=== PATIENT | female | born 1960 | race African-American/Black ===

== ENCOUNTER 2020-12-15 13:53 | Inpatient (IN) | payer OTHER ==
[~2020-12-15] VITALS: Ht 152.4 cm; Wt 94.5 kg
[2020-12-15 15:03] LABS: BASOPHILS % 0.5 % (0.0-2.0); EOSINOPHILS % 0.2 % (0.0-5.0); HEMATOCRIT. 34.1 % (36.0-48.0); HEMOGLOBIN. 11.1 g/dL (12.0-16.0); LYMPHOCYTES % 18.5 % (20.0-50.0); MEAN CORPUSCULAR HEMOGLOBIN 31.6 pg (28.0-32.0); MEAN CORPUSCULAR VOLUME 96.9 fL (81.0-99.0); MEAN PLATELET VOLUME 8.9 fl (7.4-10.4); MONOCYTES % 6.8 % (2.0-8.0); PLATELET 205 x1000/uL (130-400); RED BLOOD CELL COUNT 3.52 mill/uL (4.2-5.4); RED CELL DISTRIBUTION WIDTH 16.3 % (11.6-14.6)
[2020-12-15 15:10] LABS: CHLORIDE 109 mEq/L (98-107)
[2020-12-15 15:12] LABS: INR 1.2
[2020-12-15 15:14] LABS: ETHANOL BLOOD < 10 mg/dL
[2020-12-15] MEDS ORDERED: POTASSIUM CHLORIDE 20MEQ TABLET SR PO ONE (16:00)
[2020-12-15] MEDS ORDERED: ASPIRIN 325MG EC TABLET PO ONE (16:00)
[2020-12-15 18:10] LABS: CLARITY URINE CLEAR (CLEAR); COLOR URINE YELLOW (YELLOW); KETONES URINE TRACE (NEGATIVE); LEUKOCYTE ESTERASE URINE NEGATIVE (NEGATIVE); NITRITE URINE NEGATIVE (NEGATIVE); OCCULT BLOOD URINE 2+ (NEGATIVE); PH URINE 6.5 (4.5-8.0); PROTEIN URINE 1+ (NEGATIVE); UROBILINOGEN URINE 0.2 E.U./dL (0.2-1.0)
[2020-12-15 18:21] LABS: CANNABINOID URINE SCREEN NEGATIVE (NEGATIVE); METHADONE URINE SCREEN NEGATIVE (NEGATIVE); OPIATES URINE SCREEN NEGATIVE (NEGATIVE); PHENCYCLIDINE URINE SCREEN NEGATIVE (NEGATIVE)
[2020-12-15 18:22] LABS: *AMPHETAMINES SCREEN URINE NEGATIVE (NEGATIVE); *BARBITURATES SCREEN URINE NEGATIVE (NEGATIVE); *BENZODIAZEPINES SCREEN URINE NEGATIVE (NEGATIVE); *COCAINE SCREEN URINE NEGATIVE (NEGATIVE)
[2020-12-15] MEDS ORDERED: ZOLPIDEM TARTRATE 5MG TABLET PO PRN (21:30)
[2020-12-15] MEDS ORDERED: DIPHENHYDRAMINE 50MG/ML VIAL IV PRN (21:30)
[2020-12-15] MEDS ORDERED: DEXTROSE 50% WATER 50ML SYRINGE IV PRN (21:30)
[2020-12-15] MEDS ORDERED: ONDANSETRON HCL 4MG/2ML INJ IV PRN (21:30)
[2020-12-15] MEDS ORDERED: ACETAMINOPHEN 325MG TABLET PO PRN ×2 (21:30)
[2020-12-15] MEDS ORDERED: POTASSIUM CHLORIDE 20MEQ TABLET SR PO NR (21:30)
[2020-12-15] MEDS ORDERED: TRAMADOL 50MG TABLET PO PRN (21:30)
[2020-12-15] MEDS ORDERED: LOPERAMIDE HCL 2MG CAPSULE PO PRN (21:30)
[2020-12-15] MEDS ORDERED: ENOXAPARIN 40MG/0.4ML SYR SUBCUT SCH (21:30)
[2020-12-15] MEDS ORDERED: MAGNESIUM/ALUMINUM HYDROXIDE/SIMETHICONE 30ML UDC PO PRN (21:30)
[2020-12-15] MEDS: HYDRALAZINE 20MG/ML VIAL IV PRN (21:58)
[2020-12-15] MEDS: SODIUM CHLORIDE 0.9% INJ 3ML FLUSH IVF SCH (22:00)
[2020-12-15 23:13] VITALS: BP 175/105
[2020-12-15] MEDS: CLONIDINE 0.1MG TABLET PO PRN (23:57)
[2020-12-16] VITALS (12 sets, daily range): BP systolic 116–181; BP diastolic 55–106
[2020-12-16] MEDS: SODIUM CHLORIDE 0.9% INJ 3ML FLUSH IVF SCH ×3 (06:47→22:00)
[2020-12-16 07:21] LABS: CHLORIDE 110 mEq/L (98-107)
[2020-12-16 07:31] LABS: PHOSPHORUS 2.2 mg/dL (2.5-4.9)
[2020-12-16 07:32] LABS: LDL CHOLESTEROL 195 mg/dL (5-100)
[2020-12-16 07:33] LABS: HDL CHOLESTEROL 84 mg/dL (40-59)
[2020-12-16] MEDS: BLOOD SUGAR DIAGNOSTIC STRIP TEST SCH ×4 (07:48→20:35)
[2020-12-16] MEDS ORDERED: GLIPIZIDE 5MG XL TABLET PO SCH (08:00)
[2020-12-16] MEDS: AMLODIPINE 10MG TABLET PO SCH (08:31)
[2020-12-16] MEDS: LISINOPRIL 20MG TABLET PO SCH ×2 (08:31→20:32)
[2020-12-16] MEDS: INSULIN LISPRO 100 UNITS/ML SUBCUT SCH ×4 (08:35→20:52)
[2020-12-16] MEDS: HYDRALAZINE 20MG/ML VIAL IV PRN (09:12)
[2020-12-16] MEDS: GLIPIZIDE XL 2.5MG TABLET PO SCH (10:00)
[2020-12-16] MEDS ORDERED: LEVOTHYROXINE SODIUM 25MCG TABLET PO SCH (12:15)
[2020-12-16] MEDS: CLONIDINE 0.1MG TABLET PO PRN (12:18)
[2020-12-16] MEDS: FUROSEMIDE 40MG/4ML VIAL IVP SCH ×2 (12:25→17:17)
[2020-12-16] MEDS ORDERED: CLONIDINE 0.2MG TABLET PO PRN (13:30)
[2020-12-16 13:41] LABS: CREATINE KINASE 2265 IU/L (26-192)
[2020-12-16] MEDS: ATORVASTATIN CALCIUM 40MG TABLET PO SCH (20:32)
[2020-12-16] MEDS: ENOXAPARIN 30MG/0.3ML SYR SUBCUT SCH (20:35)
[2020-12-17] VITALS (12 sets, daily range): BP systolic 113–158; BP diastolic 60–105
[2020-12-17] MEDS: HYDRALAZINE 20MG/ML VIAL IV PRN (01:36)
[2020-12-17] MEDS: SODIUM CHLORIDE 0.9% INJ 3ML FLUSH IVF SCH ×3 (06:00→21:15)
[2020-12-17] MEDS: BLOOD SUGAR DIAGNOSTIC STRIP TEST SCH ×4 (07:30→21:15)
[2020-12-17 07:58] LABS: BASOPHILS % 0.4 % (0.0-2.0); EOSINOPHILS % 0.2 % (0.0-5.0); LYMPHOCYTES % 13.4 % (20.0-50.0); MEAN CORPUSCULAR HEMOGLOBIN 31.9 pg (28.0-32.0); MEAN CORPUSCULAR VOLUME 95.5 fL (81.0-99.0); MONOCYTES % 5.6 % (2.0-8.0); NEUTROPHILS % 80.4 % (40.0-76.0); PLATELET 226 x1000/uL (130-400); RED BLOOD CELL COUNT 3.77 mill/uL (4.2-5.4); RED CELL DISTRIBUTION WIDTH 16.2 % (11.6-14.6)
[2020-12-17] MEDS: LEVOTHYROXINE SODIUM 100MCG TABLET PO SCH (09:27)
[2020-12-17] MEDS ORDERED: MAGNESIUM 2 G PREMIX 50 ML IV ONE (09:30)
[2020-12-17] MEDS: LISINOPRIL 20MG TABLET PO SCH ×2 (09:34→21:14)
[2020-12-17] MEDS: GLIPIZIDE XL 2.5MG TABLET PO SCH (09:35)
[2020-12-17] MEDS: AMLODIPINE 10MG TABLET PO SCH (09:35)
[2020-12-17] MEDS ORDERED: POTASSIUM CHLORIDE 20MEQ TABLET SR PO NR ×2 (09:45→11:00)
[2020-12-17] MEDS: INSULIN LISPRO 100 UNITS/ML SUBCUT SCH ×5 (09:49→21:34)
[2020-12-17] MEDS: ENOXAPARIN 30MG/0.3ML SYR SUBCUT SCH ×2 (09:51→21:15)
[2020-12-17] MEDS: FUROSEMIDE 40MG/4ML VIAL IVP SCH ×2 (11:48→18:36)
[2020-12-17] MEDS: ATORVASTATIN CALCIUM 40MG TABLET PO SCH (21:14)
[2020-12-18] VITALS (10 sets, daily range): BP systolic 108–156; BP diastolic 63–89
[2020-12-18] MEDS: SODIUM CHLORIDE 0.9% INJ 3ML FLUSH IVF SCH ×3 (06:48→22:00)
[2020-12-18] MEDS ORDERED: MAGNESIUM 2 G PREMIX 50 ML IV SCH (08:00)
[2020-12-18] MEDS: INSULIN LISPRO 100 UNITS/ML SUBCUT SCH ×5 (08:00→20:57)
[2020-12-18] MEDS: AMLODIPINE 10MG TABLET PO SCH (08:01)
[2020-12-18] MEDS: FUROSEMIDE 40MG/4ML VIAL IVP SCH ×2 (08:01→17:15)
[2020-12-18] MEDS: LEVOTHYROXINE SODIUM 100MCG TABLET PO SCH (08:02)
[2020-12-18] MEDS: LISINOPRIL 20MG TABLET PO SCH ×2 (08:02→20:55)
[2020-12-18] MEDS: BLOOD SUGAR DIAGNOSTIC STRIP TEST SCH ×4 (08:07→20:57)
[2020-12-18] MEDS: ENOXAPARIN 30MG/0.3ML SYR SUBCUT SCH ×2 (08:07→20:57)
[2020-12-18] MEDS: GLIPIZIDE XL 2.5MG TABLET PO SCH (08:09)
[2020-12-18] MEDS ORDERED: ACETAMINOPHEN 325MG TABLET PO PRN (09:00)
[2020-12-18] MEDS: HYDRALAZINE 20MG/ML VIAL IV PRN (11:15)
[2020-12-18] MEDS ORDERED: POTA-81 PO (12:09)
[2020-12-18] MEDS ORDERED: HYDR-4135 PO (12:10)
[2020-12-18] MEDS ORDERED: ATOR-2 PO (12:11)
[2020-12-18] MEDS ORDERED: GLIP10TA10 PO (12:12)
[2020-12-18 16:16] LABS: BASOPHILS % 0.3 % (0.0-2.0); EOSINOPHILS % 0.3 % (0.0-5.0); HEMATOCRIT. 38.9 % (36.0-48.0); LYMPHOCYTES % 16.2 % (20.0-50.0); MEAN CORPUSCULAR HEMOGLOBIN 31.6 pg (28.0-32.0); MEAN CORPUSCULAR VOLUME 94.6 fL (81.0-99.0); MEAN PLATELET VOLUME 8.7 fl (7.4-10.4); MONOCYTES % 6.4 % (2.0-8.0); NEUTROPHILS % 76.8 % (40.0-76.0); PLATELET 271 x1000/uL (130-400); RED BLOOD CELL COUNT 4.11 mill/uL (4.2-5.4); RED CELL DISTRIBUTION WIDTH 16.2 % (11.6-14.6)
[2020-12-18 16:31] LABS: CHLORIDE 106 mEq/L (98-107)
[2020-12-18 16:41] LABS: PHOSPHORUS 2.6 mg/dL (2.5-4.9)
[2020-12-18] MEDS: QUETIAPINE FUMARATE 50MG TABLET PO SCH (19:30)
[2020-12-18] MEDS ORDERED: POTASSIUM CHLORIDE 20MEQ TABLET SR PO NR ×2 (19:30→22:00)
[2020-12-18] MEDS: ATORVASTATIN CALCIUM 40MG TABLET PO SCH (20:55)
[2020-12-18] MEDS: ALLOPURINOL 300 MG TABLET PO SCH (20:57)
[2020-12-18] MEDS ORDERED: ASCORBIC ACID 500 MG TABLET PO SCH (21:00)
[2020-12-18] MEDS ORDERED: BISACODYL 10MG SUPP PR PRN (21:00)
[2020-12-18] MEDS ORDERED: DOCUSATE SODIUM 100MG CAPSULE PO SCH (21:00)
[2020-12-18] MEDS ORDERED: CHLORHEXIDINE GLUCONATE 4% EXTERNAL USE TOP SCH (21:00)
[2020-12-18] MEDS: ALPRAZOLAM 0.25 MG TABLET PO SCH (22:00)
[2020-12-19] VITALS (34 sets, daily range): BP systolic 75–191; BP diastolic 35–136
[2020-12-19] MEDS: CHLORHEXIDINE GLUCONATE 4% EXTERNAL USE TOP SCH ×2 (05:00→09:00)
[2020-12-19 05:20] LABS: INR 1.1; PARTIAL THROMBOPLASTIN TIME 28.3 sec (23.4-31.0)
[2020-12-19 05:23] LABS: CHLORIDE 106 mEq/L (98-107)
[2020-12-19] MEDS: ALLOPURINOL 300 MG TABLET PO SCH (05:30)
[2020-12-19] MEDS ORDERED: DEL NIDO ELECTROLYTE-S(PH 7.4) 1,000 ML IV SCH ×2 (06:00)
[2020-12-19] MEDS ORDERED: NICARDIPINE 50 MG in NS 230 ML IV SCH (06:00)
[2020-12-19] MEDS ORDERED: EPINEPHRINE 5 MG in DEXT 5% WATER 245 ML IV SCH (06:00)
[2020-12-19] MEDS ORDERED: NOREPINEPHRINE 8 MG in DEXT 5% WATER 242 ML IV SCH (06:00)
[2020-12-19] MEDS: ALPRAZOLAM 0.25 MG TABLET PO SCH ×3 (06:00→21:42)
[2020-12-19] MEDS ORDERED: PAPAVERINE HCL 180MG in SODIUM CHLORIDE 0.9% 24ML IV SCH (06:00)
[2020-12-19] MEDS ORDERED: CEFAZOLIN 2,000 MG in DEXT 5% WATER 100 ML IV SCH (06:00)
[2020-12-19] MEDS ORDERED: INSULIN REGULAR (DRIP) 100 UNITS in SODIUM CHLORIDE 0.9% 99 ML IV SCH (06:00)
[2020-12-19] MEDS: SODIUM CHLORIDE 0.9% INJ 3ML FLUSH IVF SCH ×3 (06:00→21:59)
[2020-12-19] MEDS ORDERED: AMINOCAPROIC ACID 5,000 MG in SODIUM CHLORIDE 0.9% 230 ML IV SCH (06:00)
[2020-12-19 06:15] LABS: BASOPHILS % 0.2 % (0.0-2.0); EOSINOPHILS % 0.5 % (0.0-5.0); HEMATOCRIT. 40.5 % (36.0-48.0); HEMOGLOBIN. 13.1 g/dL (12.0-16.0); LYMPHOCYTES % 13.2 % (20.0-50.0); MEAN CORPUSCULAR HEMOGLOBIN 30.7 pg (28.0-32.0); MEAN CORPUSCULAR VOLUME 95.5 fL (81.0-99.0); MEAN PLATELET VOLUME 9.1 fl (7.4-10.4); MONOCYTES % 11.1 % (2.0-8.0); PLATELET 248 x1000/uL (130-400); RED BLOOD CELL COUNT 4.25 mill/uL (4.2-5.4); RED CELL DISTRIBUTION WIDTH 16.5 % (11.6-14.6)
[2020-12-19] MEDS: FUROSEMIDE 40MG/4ML VIAL IVP SCH ×2 (07:15→18:03)
[2020-12-19] MEDS: BLOOD SUGAR DIAGNOSTIC STRIP TEST SCH ×5 (07:30→21:00)
[2020-12-19] MEDS: LEVOTHYROXINE SODIUM 100MCG TABLET PO SCH (07:30)
[2020-12-19] MEDS: INSULIN LISPRO 100 UNITS/ML SUBCUT SCH ×4 (08:00→21:43)
[2020-12-19] MEDS: GLIPIZIDE XL 2.5MG TABLET PO SCH (08:00)
[2020-12-19] MEDS: QUETIAPINE FUMARATE 50MG TABLET PO SCH (09:00)
[2020-12-19] MEDS: LISINOPRIL 20MG TABLET PO SCH ×2 (09:00→21:43)
[2020-12-19] MEDS: AMLODIPINE 10MG TABLET PO SCH (09:00)
[2020-12-19] MEDS: ENOXAPARIN 30MG/0.3ML SYR SUBCUT SCH (09:00)
[2020-12-19] MEDS ORDERED: MAGNESIUM 2 G PREMIX 50 ML IV SCH (09:00)
[2020-12-19] MEDS ORDERED: BUPIVACAINE HCL/PF 0.5% (5MG/ML) 10ML ONE (10:25)
[2020-12-19] MEDS ORDERED: SKIN ADHESIVE 0.7 GM EA TOP ONE (10:25)
[2020-12-19] MEDS ORDERED: POLYMYXIN B SULFATE 500000 UNITS/VIAL ONE (10:25)
[2020-12-19] MEDS ORDERED: THROMBIN (BOVINE) 5000 UNITS/VIAL TOP ONE (10:26)
[2020-12-19] MEDS ORDERED: POTASSIUM CHLORIDE INJ 40 MEQ in DEXT 5% WATER 250 ML IV SCH (11:00)
[2020-12-19] MEDS ORDERED: BACITRACIN 15GM TUBE TOP ONE (11:03)
[2020-12-19] MEDS ORDERED: ROCURONIUM BROMIDE 10MG/ML VIAL 5ML IV ONE (11:23)
[2020-12-19] MEDS ORDERED: DEXAMETHASONE 4MG/ML 1ML VIAL ONE (11:24)
[2020-12-19] MEDS ORDERED: GLYCOPYRROLATE 0.2 MG/ML 2ML VIAL ONE ×3 (11:33→12:36)
[2020-12-19] MEDS ORDERED: NEOSTIGMINE METHYLSULFATE 1MG/ML 10 ML VIAL ONE (11:58)
[2020-12-19] MEDS ORDERED: ALBUMIN HUMAN 12.5G/250ML (5%) IV PRN (12:00)
[2020-12-19] MEDS ORDERED: MORPHINE SULFATE 2 MG/ML CPJ (NOT FOR IM USE) IV PRN (12:00)
[2020-12-19] MEDS ORDERED: ALBUMIN HUMAN 25GM/100ML (25%) IV PRN (12:00)
[2020-12-19] MEDS ORDERED: OXYCODONE HCL/ACETAMINOPHEN 5/325MG TABLET PO PRN (12:00)
[2020-12-19] MEDS ORDERED: KETOROLAC 15MG/ML VIAL IV PRN (12:00)
[2020-12-19] MEDS ORDERED: FUROSEMIDE 40MG/4ML VIAL ONE (12:03)
[2020-12-19] MEDS ORDERED: ALBUMIN HUMAN 25GM/100ML (25%) IV ONE (12:29)
[2020-12-19] MEDS ORDERED: HALOPERIDOL LACTATE 5MG/ML VIAL IM NR ×2 (12:45→13:30)
[2020-12-19 13:01] LABS: BG BASE EXCESS 3.5 mmol/L (-2.0-2.0); BG CARBOXYHEMOGLOBIN 0.3 % (0.5-1.5); BG DEOXYHEMOGLOBIN 5.3 % (0.0-5.0); BG FRACTION INSPIRED OXYGEN 44; BG HCO3 ACT 27.8 mmol/L (22.0-26.0); BG METHEMOGLOBIN 0.2 % (0.0-1.5); BG OXYGEN SATURATION 94.7 % (92.0-98.5); BG OXYHEMOGLOBIN 94.2 % (94.0-97.0); BG PCO2 41.1 mmHg (35.0-45.0); BG PH 7.448 (7.350-7.450); BG PO2 79.4 mmHg (75.0-100.0); BG SAMPLE SITE ALINE; BG TOTAL HEMOGLOBIN 9.6 g/dL (12.0-18.0); BG VENT MODE NASAL CANNULA
[2020-12-19 13:33] LABS: BASOPHILS % 0.2 % (0.0-2.0); EOSINOPHILS % 0.9 % (0.0-5.0); HEMATOCRIT. 28.3 % (36.0-48.0); LYMPHOCYTES % 13.1 % (20.0-50.0); MEAN CORPUSCULAR HEMOGLOBIN 32.2 pg (28.0-32.0); MEAN CORPUSCULAR VOLUME 95.9 fL (81.0-99.0); MEAN PLATELET VOLUME 8.6 fl (7.4-10.4); MONOCYTES % 6.7 % (2.0-8.0); NEUTROPHILS % 79.1 % (40.0-76.0); PLATELET 177 x1000/uL (130-400); RED BLOOD CELL COUNT 2.95 mill/uL (4.2-5.4)
[2020-12-19 13:39] LABS: INR 1.2; PARTIAL THROMBOPLASTIN TIME 27.8 sec (23.4-31.0); PROTHROMBIN TIME 12.9 sec (9.6-11.0)
[2020-12-19 13:57] LABS: HEMOGLOBIN. 9.5 g/dL (12.0-16.0)
[2020-12-19] MEDS ORDERED: KCL 10MEQ/50ML PREMIX 150 ML IV PRN (14:15)
[2020-12-19] MEDS ORDERED: KCL 10MEQ/50ML PREMIX 200 ML IV PRN (14:15)
[2020-12-19] MEDS ORDERED: KCL 10MEQ/50ML PREMIX 100 ML IV PRN (14:15)
[2020-12-19] MEDS ORDERED: FUROSEMIDE 40MG/4ML VIAL IVP NR (14:15)
[2020-12-19] MEDS: CEFAZOLIN 1000MG PREMIX 50 ML IV SCH ×2 (14:47→21:58)
[2020-12-19 15:58] LABS: HEMATOCRIT 29.8 % (36.0-48.0)
[2020-12-19] MEDS ORDERED: MAGNESIUM 1 G PREMIX 100 ML IV ONE (16:30)
[2020-12-19] MEDS ORDERED: MAGNESIUM 2 G PREMIX 50 ML IV ONE (16:30)
[2020-12-19] MEDS: IPRATROPIUM/ALBUTEROL 0.5-3(2.5)MG/3ML NEB HHN SCH ×2 (17:34→20:40)
[2020-12-19] MEDS ORDERED: MAGNESIUM SULFATE 3 GM in SODIUM CHLORIDE 0.9% 100 ML IV NR (18:00)
[2020-12-19 20:18] LABS: BASOPHILS % 0.1 % (0.0-2.0); EOSINOPHILS % 0.1 % (0.0-5.0); HEMATOCRIT. 33.7 % (36.0-48.0); HEMOGLOBIN. 11.2 g/dL (12.0-16.0); LYMPHOCYTES % 7.4 % (20.0-50.0); MEAN CORPUSCULAR HEMOGLOBIN 32.4 pg (28.0-32.0); MEAN CORPUSCULAR VOLUME 98.1 fL (81.0-99.0); MEAN PLATELET VOLUME 8.8 fl (7.4-10.4); MONOCYTES % 7.8 % (2.0-8.0); NEUTROPHILS % 84.6 % (40.0-76.0); PLATELET 182 x1000/uL (130-400); RED BLOOD CELL COUNT 3.44 mill/uL (4.2-5.4); RED CELL DISTRIBUTION WIDTH 16.8 % (11.6-14.6)
[2020-12-19] MEDS: ATORVASTATIN CALCIUM 40MG TABLET PO SCH (21:42)
[2020-12-20] VITALS (25 sets, daily range): BP systolic 107–167; BP diastolic 47–100
[2020-12-20] MEDS: IPRATROPIUM/ALBUTEROL 0.5-3(2.5)MG/3ML NEB HHN SCH ×6 (00:28→20:00)
[2020-12-20] MEDS: ALPRAZOLAM 0.25 MG TABLET PO SCH ×3 (05:09→22:00)
[2020-12-20] MEDS: CEFAZOLIN 1000MG PREMIX 50 ML IV SCH ×2 (05:09→14:39)
[2020-12-20 05:54] LABS: BASOPHILS % 0.1 % (0.0-2.0); HEMATOCRIT. 34.2 % (36.0-48.0); HEMOGLOBIN. 11.2 g/dL (12.0-16.0); LYMPHOCYTES % 8.4 % (20.0-50.0); MEAN CORPUSCULAR VOLUME 94.4 fL (81.0-99.0); MEAN PLATELET VOLUME 9.1 fl (7.4-10.4); MONOCYTES % 10.3 % (2.0-8.0); NEUTROPHILS % 81.2 % (40.0-76.0); PLATELET 221 x1000/uL (130-400); RED BLOOD CELL COUNT 3.62 mill/uL (4.2-5.4); RED CELL DISTRIBUTION WIDTH 16.2 % (11.6-14.6)
[2020-12-20] MEDS: SODIUM CHLORIDE 0.9% INJ 3ML FLUSH IVF SCH ×3 (06:00→22:00)
[2020-12-20] MEDS ORDERED: FUROSEMIDE 40MG/4ML VIAL IVP SCH (07:00)
[2020-12-20] MEDS: HYDRALAZINE 20MG/ML VIAL IV PRN (07:09)
[2020-12-20] MEDS: FUROSEMIDE 40MG/4ML VIAL IVP SCH ×2 (07:50→16:29)
[2020-12-20] MEDS: LEVOTHYROXINE SODIUM 100MCG TABLET PO SCH (07:50)
[2020-12-20] MEDS: BLOOD SUGAR DIAGNOSTIC STRIP TEST SCH ×4 (07:50→21:00)
[2020-12-20] MEDS: GLIPIZIDE XL 2.5MG TABLET PO SCH (08:20)
[2020-12-20] MEDS: INSULIN LISPRO 100 UNITS/ML SUBCUT SCH ×4 (08:20→21:00)
[2020-12-20] MEDS: AMLODIPINE 10MG TABLET PO SCH (09:00)
[2020-12-20] MEDS: QUETIAPINE FUMARATE 50MG TABLET PO SCH (09:00)
[2020-12-20] MEDS: LISINOPRIL 20MG TABLET PO SCH ×2 (09:00→21:00)
[2020-12-20] MEDS ORDERED: POTASSIUM CHLORIDE 20MEQ TABLET SR PO SCH (10:00)
[2020-12-20 10:26] LABS: T4 FREE 0.36 ng/dL (0.76-1.46)
[2020-12-20] MEDS: ATORVASTATIN CALCIUM 40MG TABLET PO SCH (21:00)
== END 2020-12-20 23:56 | disposition short-term general hospital (02) | DRG 270 ==
LOC: ER 13:53 → 5EST 17:30 → ENRESERV 21:24 → CVICU 12-19 12:47 → 3WST 12-20 09:02
PROVIDERS: ADMIT Internal Medicine; ATTEND Internal Medicine
PROC: 0W9D0ZZ Drainage of Pericardial Cavity, Open Approach (ICD-10-PCS; principal; 2020-12-19)
DX: I21.4 Non-ST elevation (NSTEMI) myocardial infarction (principal); I50.43 Acute on chronic combined systolic (congestive) and diastolic (congestive) heart failure; I31.3 Pericardial effusion (noninflammatory); I31.4 Cardiac tamponade; I13.0 Hypertensive heart and chronic kidney disease with heart failure and stage 1 through stage 4 chronic kidney disease, or unspecified chronic kidney disease; M62.82 Rhabdomyolysis; Z68.41 Body mass index [BMI] 40.0-44.9, adult; E87.6 Hypokalemia; E11.22 Type 2 diabetes mellitus with diabetic chronic kidney disease; N18.9 Chronic kidney disease, unspecified; E11.65 Type 2 diabetes mellitus with hyperglycemia; E03.9 Hypothyroidism, unspecified; E66.9 Obesity, unspecified; R74.01 Elevation of levels of liver transaminase levels; E78.00 Pure hypercholesterolemia, unspecified; D64.9 Anemia, unspecified; E78.5 Hyperlipidemia, unspecified; F22 Delusional disorders; F41.9 Anxiety disorder, unspecified; I87.8 Other specified disorders of veins; Z20.822 Contact with and (suspected) exposure to COVID-19; Z78.1 Physical restraint status; W18.39XA Other fall on same level, initial encounter; Y93.89 Activity, other specified; Y92.89 Other specified places as the place of occurrence of the external cause; Y99.8 Other external cause status; Z79.899 Other long term (current) drug therapy; Z90.710 Acquired absence of both cervix and uterus
CPT/HCPCS: 36415; 36600; 71045; 80048; 80053; 80061; 80305; 80320; 81003; 82375; 82550; 82805; 82962; 83036; 83735; 83880; 84100; 84439; 84443; 84484; 85014; 85018; 85025; 86850; 86900; 87070; 87075; 87116; 87426; 88108; 88305; 88312; 93005; 93306; 93970; 99291; J0360; J0690; J1100; J1200; J1630; J1650; J1815; J1940; J2440; J2710; J3475; J3480; J3490; J7040; J7050; J7060; P9047; G0480

== ENCOUNTER 2022-08-22 13:30 | Emergency (ER) | payer OTHER ==
[~2022-08-22] VITALS: Ht 165.1 cm; Wt 68.0 kg
[~2022-08-22 13:30] MED LIST: ATOR-2 PO; GLIP10TA10 PO; HYDR-4135 PO; POTA-81 PO
[2022-08-22 13:34] VITALS: BP 183/80
[2022-08-22] MEDS ORDERED: ACETAMINOPHEN 325MG TABLET PO ONE (14:00)
== END 2022-08-22 15:38 | disposition home or self-care (01) ==
LOC: ER 13:30
DX: R51.9 Headache, unspecified (principal); E11.9 Type 2 diabetes mellitus without complications; E78.00 Pure hypercholesterolemia, unspecified; I10 Essential (primary) hypertension; Z86.59 Personal history of other mental and behavioral disorders
CPT/HCPCS: 99284

== ENCOUNTER 2025-07-06 05:49 | Emergency (ER) | payer OTHER ==
[~2025-07-06] VITALS: Ht 134.6 cm; Wt 93.0 kg
[~2025-07-06 05:49] MED LIST changes: -GLIP10TA10 PO; +GLIP10TA17 PO; -HYDR-4135 PO; +HYDR50TA40 PO
[2025-07-06 05:57] VITALS: O2SAT 100
[2025-07-06 07:35] LABS: BASOPHILS % 0.5 % (0.0-2.0); EOSINOPHILS % 1.6 % (0.0-5.0); HEMATOCRIT. 37.4 % (36.0-48.0); HEMOGLOBIN. 11.9 g/dL (12.0-16.0); LYMPHOCYTES % 28.1 % (20.0-50.0); MEAN PLATELET VOLUME 8.1 fl (7.4-10.4); MONOCYTES % 5.3 % (2.0-8.0); NEUTROPHILS % 64.5 % (40.0-76.0); PLATELET 226 x1000/uL (130-400); RED BLOOD CELL COUNT 4.04 mill/uL (4.2-5.4); RED CELL DISTRIBUTION WIDTH 16.9 % (11.6-14.6)
[2025-07-06 07:49] LABS: CREATININE 1.5 mg/dL (0.6-1.0); UREA NITROGEN BLOOD 12.0 mg/dL (9-23)
[2025-07-06] MEDS: IOHEXOL-300 100 ML BOTTLE ONE (09:58)
[2025-07-06 10:19] VITALS: BP 225/86; PULSE 64; RESP 16; TEMP 36.8; O2SAT 100
== END 2025-07-06 10:24 | disposition home or self-care (01) ==
LOC: ER 05:49
DX: R09.89 Other specified symptoms and signs involving the circulatory and respiratory systems (principal); E11.9 Type 2 diabetes mellitus without complications; M54.2 Cervicalgia; I10 Essential (primary) hypertension; Z79.899 Other long term (current) drug therapy
CPT/HCPCS: 99285; 70491; 80048; 85025; 36415; 70490; Q9967